=== PATIENT | male | born 1955 | race Caucasian/White ===

== ENCOUNTER 2018-04-08 17:17 | Observation (INO) | payer SELFPAY ==
[2018-04-08] MEDS ORDERED: NA CHLORIDE 0.9% 2,000 ML ONE (17:50)
[2018-04-08 17:59] LABS: Absolute Monocytes 0.7 K/uL (0.1-1.3); Absolute Neutrophil 7.1 K/uL (1.8-8.0); Basophils % 1.1 % (0-1.3); Eosinophils % 2.8 % (0-4.4); Hematocrit 46.9 % (39.6-49.0); Lymphocytes % 19.9 % (15.3-44.8); MCH 27.5 pg (27.0-35.0); MCV 80.9 fL (80-100); MPV 9.6 fL (7.6-11.3); Monocytes % 7.1 % (3.3-12.3)
[2018-04-08 18:03] LABS: Protime INR 0.94
--- NOTE | 2018-04-08 18:10 | RAD REPORT ---
EXAM DESCRIPTION: CT - Head Brain Wo Cont - 04/08/2018 6:03 pm CLINICAL HISTORY: Dizziness and headache COMPARISON: none TECHNIQUE: Computed axial tomography of the head was obtained. IV contrast was not requested. All CT scans are performed using dose optimization technique as appropriate and may include automated exposure control or mA/KV adjustment according to patient size. FINDINGS: An intracranial bleed is not seen . The ventricles are normal in caliber. No extra-axial fluid collection is noted. Mild low-density areas within periventricular, deep and sub cortical white matter likely represent ischemic changes secondary to small vessel disease. Fluid within the sinuses/ mastoids is not seen. IMPRESSION: No acute intracranial abnormality is seen. If patient's symptoms persist MRI of the bra in would be recommended.
--- NOTE | 2018-04-08 18:31 | RAD REPORT ---
EXAM DESCRIPTION: Myrna Single View04/08/2018 6:12 pm CLINICAL HISTORY: cough COMPARISON: None FINDINGS: The lungs appear clear of acute infiltrate. The heart is mildly to moderately enlarged. Postsurgical changes involve the chest. IMPRESSION: No acute abnormalities displayed
[2018-04-08 18:33] LABS: ALT/SGPT 14 U/L (12-78); AST/SGOT 13 U/L (15-37); Albumin 3.3 g/dL (3.4-5.0); Alkaline Phosphatase 121 U/L (45-117); BUN Blood Urea Nitrogen 16 mg/dL (7-18); Bicarbonate 29 mmol/L (21-32); Bilirubin Direct < 0.1 mg/dL (0-0.2); Bilirubin Total 0.3 mg/dL (0.2-1.0); CKMB Creatine Kinase MB 2.4 ng/mL (0.3-3.6); Creatine Phosphokinase 63 U/L (39-308); Glucose Level 362 mg/dL (74-106); Lipase 355 U/L (73-393); Magnesium 2.3 mg/dL (1.8-2.4); NT PRO-BNP 390 pg/mL (<125); Potassium 3.6 mmol/L (3.5-5.1); Protein, Total 6.6 g/dL (6.4-8.2); Sodium Level 140 mmol/L (136-145)
--- NOTE | 2018-04-08 19:08 | ER ---
Nurse's Notes [facility] Name: Romie Mallory Age: 62 yrs Sex: Male : 1955 Arrival Date: 04/08/2018 Time: 17:19 Bed 4 Private MD: Diagnosis: Dizziness and giddiness;Type 1 diabetes mellitus;Weakness;Vomiting Presentation: 04/08 17:23 Presenting complaint: EMS states: EMS states patient was a convenience store eating ae1 snacks with friends when he suddenly became dizzy and had to lie down. Patient states he consumed 3 large [employer] Peanut butter cups and a large Dr. Pepper. Patient states he knows he is a diabetic but has not taken insulin or other prescribed medications for "over a year." Patient vomited upon arrival. Transition of care: patient was not received from another setting of care. Onset of symptoms was April 08, 2018 at 17:00. Risk Assessment: Do you want to hurt yourself or someone else? Patient reports no desire to harm self or others. Initial Sepsis Screen: Does the patient meet any 2 criteria? No. Patient's initial sepsis screen is negative. Does the patient have a suspected source of infection? No. Patient's initial sepsis screen is negative. Care prior to arrival: Medication(s) given: Normal saline infusion, 300 mls has infused out of a liter bolus. zofran 4 mg, IV initiated. 20 GA, in the right forearm. 17:23 Method Of Arrival: EMS: [facility] ae1 17:23 Acuity: MANDI 2 ae1 17:27 Care prior to arrival: Glucose check: 408. ae1 Triage Assessment: 17:31 GI: Reports nausea, vomiting. ae1 17:33 General: Appears uncomfortable, slender, unkempt, Behavior is calm, cooperative. Pain: ae1 Denies pain. EENT: Patient states his vision has deteriorated over the last year. . Neuro: Level of Consciousness is awake, alert, obeys commands, Oriented to person, place, time, situation. Neuro: Reports dizziness. Cardiovascular: Heart tones S1 S2 present Patient's skin is warm and dry. Rhythm is regular. Respiratory: Airway is patent Respiratory effort is even, unlabored, shallow, Respiratory pattern is regular, symmetrical, Breath sounds are clear bilaterally. Breath sounds are diminished bilaterally. in left posterior lower lobe and right posterior lower lobe. GI: Reports. : No signs and/or symptoms were reported regarding the genitourinary system. Derm: Skin is normal. Musculoskeletal: No signs and/or symptoms reported regarding the musculoskeletal system. Historical: - Allergies: 17:29 No Known Allergies; ae1 - Home Meds: 17:29 None [Active]; ae1 - PMHx: 17:29 Diabetes - IDDM; Hypertension; Hyperlipidemia; Headaches; ae1 - PSHx: 17:29 cardiac stents; triple bypass.; ae1 - Immunization history:: Adult Immunizations not up to date. - Social history:: Smoking status: Patient uses tobacco products, smokes one pack cigarettes per day. - Ebola Screening: : Patient denies travel to an Ebola-affected area in the 21 days before illness onset No symptoms or risks identified at this time. - Family history:: not pertinent. Screenin:30 Abuse screen: Denies threats or abuse. Nutritional screening: No deficits noted. ae1 Tuberculosis screening: No symptoms or risk factors identified. Fall Risk None identified. Assessment: 17:30 General: Appears comfortable, Behavior is calm, cooperative. mg2 19:17 Reassessment: see full triage assessment. ae1 20:15 Reassessment: Patient appears in no apparent distress at this time. No changes from jd3 previously documented assessment. Patient and/or family updated on plan of care and expected duration. Pain level reassessed. Patient is alert, oriented x 3, equal unlabored respirations, skin warm/dry/pink. 21:26 Reassessment: Patient appears in no apparent distress at this time. No changes from jd3 previously documented assessment. Patient and/or family updated on plan of care and expected duration. Pain level reassessed. Patient is alert, oriented x 3, equal unlabored respirations, skin warm/dry/pink. 21:46 Reassessment: report called to [facility] for bed 225. bb 22:06 Reassessment: pt vomiting on moving to wheelchair Dr Burgos notified pt medicated see joce DEC. Vital Signs: 17:29 BP 183 / 94; Pulse 68; Resp 19; Temp 97.8(O); Pulse Ox 92% on R/A; Weight 74.84 kg (R); ae1 Pain 0/10; 21:26 BP 195 / 95; Pulse 72; Resp 17 S; Pulse Ox 95% on R/A; jd3 NIH Stroke Scale Scores: 19:24 NIHSS Score: 0 [facility] ED Course: 17:19 Patient arrived in ED. hj 17:23 Adrian Salinas, RN is Primary Nurse. ae1 17:27 Triage completed. ae1 17:29 Arm band placed on. EKG completed in triage. Results shown to MD. mg2 17:30 Bed in low position. Call light in reach. Side rails up X2. satellite project site monitor on. Pulse ae1 ox on. NIBP on. Warm blanket given. 17:30 Maintain EMS IV. Dressing intact. Good blood return noted. Site clean \\T\\ dry. Gauge \\T\\ mg 2 site: 20 in the right forearm. 17:36 Myles Burgos MD is Attending Physician. tera 17:45 EKG done, by ED staff, reviewed by Myles Burgos MD. jb1 18:03 CT completed. Patient moved to CT via stretcher. Patient moved back from CT. cw1 18:04 CT Head Brain wo Cont In Process Unspecified. EDMS 18:09 XRAY Chest (1 view) In Process Unspecified. EDMS 19:26 Delroy Suazo MD is Hospitalizing Provider. tera 21:28 No provider procedures requiring assistance completed. Patient admitted, IV remains in jd3 place. Administered Medications: 18:21 Drug: NS 0.9% 1000 ml Route: IV; Rate: 1 bolus; Site: right forearm; mg2 21:30 Follow up: Response: No adverse reaction; IV Status: Completed infusion; IV Intake: jd3 1000ml 18:41 Drug: NS 0.9% 1000 ml Route: IV; Rate: 1 bolus; Site: right forearm; mg2 21:30 Follow up: Response: No adverse reaction; IV Status: Completed infusion; IV Intake: jd3 1000ml 19:22 Not Given (Duplicate Order): Insulin Regular Human 10 units IVP once tera 19:22 Not Given (Duplicate Order): metFORMIN 1000 mg PO once; with meal or snack tera 19:25 Drug: Zofran 4 mg Route: IVP; Site: right forearm; jd3 21:30 Follow up: Response: No adverse reaction jd3 22:05 Drug: Zofran 4 mg Route: IVP; Site: right forearm; bb 22:05 Follow up: Response: Other; medication administered on transfer to room 225 bb Point of Care Testing: Blood Glucose: 17:29 Blood Glucose: 306 mg/dL; ae1 Ranges: Intake: 21:30 IV: 1000ml; Total: 1000ml. jd3 21:30 IV: 1000ml; Total: 2000ml. jd3 Outcome: 19:07 Discharge ordered by . tera 19:27 Decision to Hospitalize by Provider. tera 21:33 Admitted to Tele accompanied by tech, via wheelchair, room 225, with chart, Report bb called to receiving RN 21:33 Condition: stable 21:33 Instructed on the need for admit. 22:07 Patient left the ED. joce NIH Stroke Scale - NIH Stroke Score Date: 04/08/2018 Time: 19:24 Total Score = 0 1a. Level of Consciousness (LOC) - 0(Alert) 1b. Level of Consciousness (LOC) (Year \\T\\ Age) - 0(Both) 1c. LOC Commands (Open \\T\\ Closes Eyes/Software Architect) - 0(Both) 2. Best Gaze (Lateral Gaze Paresis) - 0(Normal) 3. Visual Field Loss - 0(No visual loss) 4. Facial Palsy - 0(Normal) 5a. Left Arm: Motor (10-second hold) - 0(No drift) 5b. Right Arm: Motor (10-second hold) - 0(No drift) 6a. Left Leg: Motor (5-second hold - always test supine) - 0(No drift) 6b. Right Leg: Motor (5-second hold - always test supine) - 0(No drift) 7. Limb Ataxia (finger/nose \\T\\ heel/crowley - test with eyes open) - 0(Absent) 8. Sensory Loss (pinprick arms/legs/face) - 0(Normal) 9. Best Language: Aphasia (description/naming/reading) - 0(No aphasia) 10. Dysarthria (speech clarity - read or repeat words) - 0(Normal) 11. Extinction and Inattention (visual/tactile/auditory/spatial/personal) - 0(No abnormality) Initials: [facility] Signatures: Dispatcher [employer] Terrance Bhtaia jb1 Myles Burgos MD MD cha Ballard, Brenda, RN RN Yuridia Blake cw1 Paul Ward RN RN hj Elliott, Andrea, RN RN ae1 Eddie Snell RN RN jd3 Jonatan Salinas RN RN mg2 Corrections: (The following items were deleted from the chart) 21: 20:15 Reassessment: Patient appears in no apparent distress at this time. No jd3 changes from previously documented assessment. Patient and/or family updated on plan of care and expected duration. Pain level reassessed. Patient is alert, oriented x 3, equal unlabored respirations, skin warm/dry/pink. jd3 21: 21:26 BP 202 / 104; Pulse 72bpm; Resp 17bpm; Spontaneous; Pulse Ox 95% RA; jd3 jd3
--- NOTE | 2018-04-08 19:08 | EDPHYS ---
Physician Documentation [facility] Name: Romie Mallory Age: 62 yrs Sex: Male : 1955 Arrival Date: 04/08/2018 Time: 17:19 Bed 4 Private MD: ED Physician Myles Burgos HPI: 04/08 17:44 This 62 yrs old Male presents to ER via EMS with complaints of Dizziness, tera Nausea/Vomiting. 17:44 The patient presents with dizziness, generalized weakness. Onset: The symptoms/episode tera began/occurred just prior to arrival, today. Context: occurred at a store. Modifying factors: The symptoms are alleviated by nothing, the symptoms are aggravated by nothing. Associated signs and symptoms: The patient has no apparent associated signs or symptoms. Severity of symptoms: At their worst the symptoms were moderate in the emergency department the symptoms are unchanged. Patient's baseline: Neuro: alert and fully oriented. The patient has not experienced similar symptoms in the past. Historical: - Allergies: 17:29 No Known Allergies; ae1 - Home Meds: 17:29 None [Active]; ae1 - PMHx: 17:29 Diabetes - IDDM; Hypertension; Hyperlipidemia; Headaches; ae1 - PSHx: 17:29 cardiac stents; triple bypass.; ae1 - Immunization history:: Adult Immunizations not up to date. - Social history:: Smoking status: Patient uses tobacco products, smokes one pack cigarettes per day. - Ebola Screening: : Patient denies travel to an Ebola-affected area in the 21 days before illness onset No symptoms or risks identified at this time. - Family history:: not pertinent. ROS: 17:44 Constitutional: Negative for fever, chills, and weight loss, Eyes: Negative for injury, tera pain, redness, and discharge, ENT: Negative for injury, pain, and discharge, Neck: Negative for injury, pain, and swelling, Cardiovascular: Negative for chest pain, palpitations, and edema, Respiratory: Negative for shortness of breath, cough, wheezing, and pleuritic chest pain, Abdomen/GI: Negative for abdominal pain, nausea, vomiting, diarrhea, and constipation, Back: Negative for injury and pain, : Negative for injury, bleeding, discharge, and swelling, MS/Extremity: Negative for injury and deformity, Skin: Negative for injury, rash, and discoloration, Psych: Negative for depression, anxiety, suicide ideation, homicidal ideation, and hallucinations, Allergy/Immunology: Negative for hives, rash, and allergies, Endocrine: Negative for neck swelling, polydipsia, polyuria, polyphagia, and marked weight changes, Hematologic/Lymphatic: Negative for swollen nodes, abnormal bleeding, and unusual bruising. 17:44 Neuro: Positive for dizziness, weakness. Exam: 17:44 Constitutional: This is a well developed, well nourished patient who is awake, alert, tera and in no acute distress. Head/Face: Normocephalic, atraumatic. Eyes: Pupils equal round and reactive to light, extra-ocular motions intact. Lids and lashes normal. Conjunctiva and sclera are non-icteric and not injected. Cornea within normal limits. Periorbital areas with no swelling, redness, or edema. ENT: Nares patent. No nasal discharge, no septal abnormalities noted. Tympanic membranes are normal and external auditory canals are clear. Oropharynx with no redness, swelling, or masses, exudates, or evidence of obstruction, uvula midline. Mucous membranes moist. Neck: Trachea midline, no thyromegaly or masses palpated, and no cervical lymphadenopathy. Supple, full range of motion without nuchal rigidity, or vertebral point tenderness. No Meningismus. Chest/axilla: Normal chest wall appearance and motion. Nontender with no deformity. No lesions are appreciated. Cardiovascular: Regular rate and rhythm with a normal S1 and S2. No gallops, murmurs, or rubs. Normal PMI, no JVD. No pulse deficits. Abdomen/GI: Soft, non-tender, with normal bowel sounds. No distension or tympany. No guarding or rebound. No evidence of tenderness throughout. Back: No spinal tenderness. No costovertebral tenderness. Full range of motion. Male : Normal genitalia with no discharge or lesions. Skin: Warm, dry with normal turgor. Normal color with no rashes, no lesions, and no evidence of cellulitis. 17:44 Respiratory: the patient does not display signs of respiratory distress, Respirations: normal, Breath sounds: are clear throughout, Respiratory rate: 18 Vital Signs: 17:29 BP 183 / 94; Pulse 68; Resp 19; Temp 97.8(O); Pulse Ox 92% on R/A; Weight 74.84 kg (R); ae1 Pain 0/10; 21:26 BP 195 / 95; Pulse 72; Resp 17 S; Pulse Ox 95% on R/A; jd3 NIH Stroke Scale Scores: 19:24 NIHSS Score: 0 tera MDM: 17:37 Patient medically screened. [facility] 17:44 Data reviewed: vital signs, nurses notes, lab test result(s), EKG, radiologic studies, [facility] CT scan, plain films. 04/08 17:43 Order name: Basic Metabolic Panel; Complete Time: 19:03 [facility] 04/08 17:43 Order name: CBC with Diff; Complete Time: 18:23 [facility] 04/08 17:43 Order name: Ckmb; Complete Time: 19:03 [facility] 04/08 17:43 Order name: CPK; Complete Time: 19:03 [facility] 04/08 17:43 Order name: LFT's; Complete Time: 19:03 [facility] 04/08 17:43 Order name: Magnesium; Complete Time: 19:03 [facility] 04/08 17:43 Order name: NT PRO-BNP; Complete Time: 19:03 [facility] 04/08 17:43 Order name: PT-INR; Complete Time: 18:23 [facility] 04/08 17:43 Order name: Ptt, Activated; Complete Time: 18:23 [facility] 04/08 17:43 Order name: Troponin (emerg Dept Use Only); Complete Time: 18:23 [facility] 04/08 17:43 Order name: Lipase; Complete Time: 19:03 [facility] 04/08 17:43 Order name: Urine Culture; Complete Time: 21:41 [facility] 04/08 19:19 Order name: Glucose, Ancillary Testing; Complete Time: 19:24 [facility] 04/08 20:09 Order name: Urine Dipstick--Ancillary (enter results) rg2 04/08 17:43 Order name: XRAY Chest (1 view); Complete Time: 19:03 [facility] 04/08 17:43 Order name: EKG; Complete Time: 17:44 [facility] 04/08 17:43 Order name: Cardiac monitoring; Complete Time: 17:46 [facility] 04/08 17:43 Order name: EKG - Nurse/Tech; Complete Time: 18:00 [facility] 04/08 17:43 Order name: IV Saline Lock; Complete Time: 17:46 [facility] 04/08 17:43 Order name: Labs collected and sent; Complete Time: 18:22 [facility] 04/08 17:43 Order name: O2 Per Protocol; Complete Time: 17:46 [facility] 04/08 17:43 Order name: O2 Sat Monitoring; Complete Time: 17:46 [facility] 04/08 17:43 Order name: CT Head Brain wo Cont; Complete Time: 18:23 [facility] 04/08 20:21 Order name: Urine Dipstick-Ancillary; Complete Time: 21:41 EDMS 04/08 17:43 Order name: Urine Dipstick-Ancillary (obtain specimen); Complete Time: 21:30 [facility] Administered Medications: 18:21 Drug: NS 0.9% 1000 ml Route: IV; Rate: 1 bolus; Site: right forearm; mg2 21:30 Follow up: Response: No adverse reaction; IV Status: Completed infusion; IV Intake: jd3 1000ml 18:41 Drug: NS 0.9% 1000 ml Route: IV; Rate: 1 bolus; Site: right forearm; mg2 21:30 Follow up: Response: No adverse reaction; IV Status: Completed infusion; IV Intake: jd3 1000ml 19:22 Not Given (Duplicate Order): Insulin Regular Human 10 units IVP once [facility] 19:22 Not Given (Duplicate Order): metFORMIN 1000 mg PO once; with meal or snack [facility] 19:25 Drug: Zofran 4 mg Route: IVP; Site: right forearm; jd3 21:30 Follow up: Response: No adverse reaction jd3 22:05 Drug: Zofran 4 mg Route: IVP; Site: right forearm; bb 22:05 Follow up: Response: Other; medication administered on transfer to room 225 bb Point of Care Testing: Blood Glucose: 17:29 Blood Glucose: 306 mg/dL; ae1 Ranges: Critical Glucose Levels:Adult <50 mg/dl or >400 mg/dl <40 mg/dl or >180 mg/dl Disposition: 04/08/18 19:27 Hospitalization ordered by Delroy Suazo for Observation. Preliminary diagnosis are Dizziness and giddiness, Type 1 diabetes mellitus, Weakness, Vomiting. - Bed requested for Telemetry/MedSurg (observation). - Status is Observation. bb - Condition is Fair. - Problem is new. - Symptoms have improved. UTI on Admission? No NIH Stroke Scale - NIH Stroke Score Date: 04/08/2018 Time: 19:24 Total Score = 0 1a. Level of Consciousness (LOC) - 0(Alert) 1b. Level of Consciousness (LOC) (Year \T\ Age) - 0(Both) 1c. LOC Commands (Open \T\ Closes Eyes/Customer Service Associate) - 0(Both) 2. Best Gaze (Lateral Gaze Paresis) - 0(Normal) 3. Visual Field Loss - 0(No visual loss) 4. Facial Palsy - 0(Normal) 5a. Left Arm: Motor (10-second hold) - 0(No drift) 5b. Right Arm: Motor (10-second hold) - 0(No drift) 6a. Left Leg: Motor (5-second hold - always test supine) - 0(No drift) 6b. Right Leg: Motor (5-second hold - always test supine) - 0(No drift) 7. Limb Ataxia (finger/nose \T\ heel/crowley - test with eyes open) - 0(Absent) 8. Sensory Loss (pinprick arms/legs/face) - 0(Normal) 9. Best Language: Aphasia (description/naming/reading) - 0(No aphasia) 10. Dysarthria (speech clarity - read or repeat words) - 0(Normal) 11. Extinction and Inattention (visual/tactile/auditory/spatial/personal) - 0(No abnormality) Initials: [facility] Signatures: Dispatcher [employer] EDMS Sophie Hoffman RN RN mw Anderson, Corey, MD MD cha Ballard, Brenda RN RN bb Adrian Salinas RN RN ae1 Eddie Snell RN RN jd3 Jonatan Salinas RN RN mg2 Corrections: (The following items were deleted from the chart) 19:22 19:07 04/08/2018 19:07 Discharged to Home. Impression: Dizziness and giddiness; tera Weakness; Type 1 diabetes mellitus. Condition is Stable. Forms are Medication Reconciliation Form, Thank You Letter, Antibiotic Education, Prescription Opioid Use. Follow up: Private Physician; When: 2 - 3 days; Reason: Recheck today's complaints, Continuance of care, Re-evaluation by your physician. Problem is new. Symptoms have improved. [facility] 19:30 19:27 Hospitalization Ordered by Delroy Suazo MD for Observation. Preliminary diagnosis is Dizziness and giddiness; Type 1 diabetes mellitus; Weakness; Vomiting. Bed requested for Telemetry/MedSurg (observation). Status is Observation. Condition is Fair. Problem is new. Symptoms have improved. UTI on Admission? No. [facility] 22:07 19:30 04/08/2018 19:27 Hospitalization Ordered by Delroy Suazo MD for bb Observation. Preliminary diagnosis is Dizziness and giddiness; Type 1 diabetes mellitus; Weakness; Vomiting. Bed requested for Telemetry/MedSurg (observation). Status is Observation. Condition is Fair. Problem is new. Symptoms have improved. UTI on Admission? No.
[2018-04-08] MEDS ORDERED: ONDANSETRON 4 MG/2 ML VIAL ONE ×2 (19:26→22:03)
[2018-04-08 20:21] LABS: Urine Blood TRACE (NEG); Urine Glucose 2+ (NEG); Urine Protein 1+ (NEG)
[2018-04-08] MEDS ORDERED: MORPHINE 2 MG/ML SYR IV PRN (20:33)
[2018-04-08] MEDS ORDERED: ACETAMINOPHEN 500 MG TAB PO PRN (20:33)
[2018-04-08] MEDS ORDERED: HYDRALAZINE HCL 20 MG/ML VIAL IV PRN (22:39)
[2018-04-08 23:05] VITALS: BMI 24.3
[2018-04-08] MEDS: NA CHLORIDE 0.9% 1,000 ML IV SCH (23:10)
[2018-04-08] MEDS: NICOTINE 21 MG/PAT TD SCH (23:11)
[2018-04-08] MEDS ORDERED: cloNIDine HCl 0.1 MG TAB PO ONE (23:34)
[2018-04-09] MEDS: ONDANSETRON 4 MG/2 ML VIAL IV PRN ×2 (03:16→17:10)
[2018-04-09 05:03] LABS: Absolute Lymphocytes (CBC) 1.6 K/uL (0.7-4.9); Absolute Monocytes 0.5 K/uL (0.1-1.3); Absolute Neutrophil 13.5 K/uL (1.8-8.0); Basophils % 0.5 % (0-1.3); Eosinophils % 0.1 % (0-4.4); Lymphocytes % 10.2 % (15.3-44.8); MCH 27.2 pg (27.0-35.0); MCV 82.1 fL (80-100); MPV 9.4 fL (7.6-11.3); RBC Red Blood Cell Count 5.73 M/uL (4.33-5.43)
[2018-04-09 05:17] LABS: ALT/SGPT 14 U/L (12-78); AST/SGOT 12 U/L (15-37); Albumin 3.4 g/dL (3.4-5.0); Alkaline Phosphatase 109 U/L (45-117); BUN Blood Urea Nitrogen 15 mg/dL (7-18); Bicarbonate 28 mmol/L (21-32); Bilirubin Total 0.5 mg/dL (0.2-1.0); Glucose Level 308 mg/dL (74-106); Potassium 3.7 mmol/L (3.5-5.1); Protein, Total 6.7 g/dL (6.4-8.2); Sodium Level 141 mmol/L (136-145)
[2018-04-09 05:28] LABS: Blood Morphology Comment NOT SEEN (NOT SEEN); Platelet Estimate ADEQ
[2018-04-09] MEDS ORDERED: GLUCAGON 1 MG/VIAL IM PRN (06:43)
[2018-04-09] MEDS ORDERED: D50W 25 GM/50 ML SYRINGE IV PRN (06:43)
--- NOTE | 2018-04-09 08:23 | P.HP ---
Certification for Inpatient Patient admitted to: Observation With expected LOS: <2 Midnights Patient will require the following post-hospital care: None Practitioner: I am a practitioner with admitting privileges, knowledge of patient current condition, hospital course, and medical plan of care. Services: Services provided to patient in accordance with Admission requirements found in Title 42 Section 412.3 of the Code of Federal Regulations Patient History Date of Service: 04/08/18 Reason for admission: Intractable nausea and vomiting; poorly-controlled diabetes History of Present Illness: Patient is a 62-year-old gentleman who came into the hospital with persistent nausea and vomiting. Patient has been having multiple episodes for the last 2 days. He has also had generalized weakness. He came into the emergency room for further evaluation. Patient denies any abdominal pain. He just states he feels weak all over. She has not been compliant with his diabetic medications as he states he cannot afford them. In the emergency room patient was given IV fluids and anti emetics. His clinical symptoms have slightly improved. Will keep him NPO in possibly started diet in the morning. At this time, will continue with current plan of care. Will also resume his diabetic medications once we get the list. For the time being will go ahead and use a sliding scale. Allergies No Known Allergies Allergy (Unverified 04/08/18 19:37) Home Medications: NK [No Home Meds] 04/09/18 - Past Medical/Surgical History Has patient received pneumonia vaccine in the past: Yes Diabetic: Yes -: DM -: HTN -: Hyperlipidemia -: Triple Bypass -: Cardiac Stents placed -: Tonsillectomy - Family History Father Medical History: Heart disease Notes: Alzheimer's Disease Mother Medical History: Cancer Notes: Cancer of Pancreas Sister Medical History: Heart disease - Social History Smoking Status: Current every day smoker Alcohol use: Yes CD- Drugs: No Caffeine use: Yes Place of Residence: Home Review of Systems 10-point ROS is otherwise unremarkable Physical Examination - Vital Signs Temperature: 99.0 F Blood Pressure: 154/71 Pulse: 69 Respirations: 18 Pulse Ox (%): 93 - Physical Exam General: Alert, In no apparent distress, Oriented x3 HEENT: Atraumatic, PERRLA, Mucous membr. moist/pink, EOMI, Sclerae nonicteric Neck: Supple, 2+ carotid pulse no bruit, No LAD, Without JVD or thyroid abnormality Respiratory: Clear to auscultation bilaterally, Normal air movement Cardiovascular: Regular rate/rhythm, Normal S1 S2, No murmurs Gastrointestinal: Normal bowel sounds, Soft and benign, Non-distended, No tenderness Musculoskeletal: No clubbing, No swelling, No tenderness Integumentary: No rashes Neurological: Normal gait, Normal speech, Normal strength at 5/5 x4 extr, Normal tone, Sensation intact, Cranial nerves 3-12 intact, Normal affect Lymphatics: No axilla or inguinal lymphadenopathy - Studies Laboratory Data (last 24 hrs) 04/08/18 17:40: PT 11.1, INR 0.94, APTT 27.6 04/08/18 17:40: WBC 10.2, Hgb 15.9, Hct 46.9, Plt Count 231 04/08/18 17:40: Sodium 140, Potassium 3.6, BUN 16, Creatinine 0.90, Glucose 362 H, Magnesium 2.3, Total Bilirubin 0.3, AST 13 L, ALT 14, Alkaline Phosphatase 121 H, Lipase 355 Assessment & Plan - Problems (Diagnosis) (1) Intractable nausea and vomiting Current Visit: Yes Status: Acute (2) Generalized weakness Current Visit: Yes Status: Acute (3) Type 1 diabetes Current Visit: Yes Status: Acute - Plan Plan: 1. IV hydration 2. Anti emetics 3. Strict blood sugar control 4. Resume diabetic meds once we get the list 5. Monitor for fever, shakes, or chills 6. Possible viral gastroenteritis symptoms which should resolve over the next 24 -48 hr. No signs of diarrhea. 7. GI and DVT prophylaxis - Advance Directives Does patient have a Living Will: No Does patient have a Durable POA for Healthcare: No - Code Status/Comfort Care Code Status Assessed: Yes Code Status: Full Code Critical Care: No Time Spent Managing PTS Care (In Minutes): 50
--- NOTE | 2018-04-09 10:55 | EKG ---
Test Date: 2018-04-08 Test Time: 17:26:35 [employer]sembl[employer] Boat: [id number] MEASUREMENT RESULTS: Intervals: Rate: 67 FL: 236 QRSD: 102 QT: 440 QTc: 464 [place]: P: 27 FL: 236 QRS: 17 T: -16 INTERPRETIVE STATEMENTS: Sinus rhythm with 1st degree AV block Possible Anterior infarct, age undetermined Abnormal ECG No previous ECG available for comparison Electronically Signed On 04-09-18 10:54:44 CDT by Raymond Rowe
[2018-04-09] MEDS: INSULIN -REGULAR HUMAN 50 UNIT/0.5 ML ML SQ SCH ×2 (12:23→17:27)
[2018-04-09] MEDS: NA CHLORIDE 0.9% 1,000 ML IV SCH (12:23)
[2018-04-09] MEDS: LISINOPRIL 10 MG TAB PO SCH (12:26)
[2018-04-09 13:03] LABS: Absolute Lymphocytes (CBC) 1.7 K/uL (0.7-4.9); Absolute Monocytes 0.7 K/uL (0.1-1.3); Absolute Neutrophil 11.9 K/uL (1.8-8.0); Basophils % 0.7 % (0-1.3); Eosinophils % 0.1 % (0-4.4); Hematocrit 46.9 % (39.6-49.0); Lymphocytes % 11.9 % (15.3-44.8); MCH 27.1 pg (27.0-35.0); MCV 80.7 fL (80-100); MPV 9.9 fL (7.6-11.3); Monocytes % 4.8 % (3.3-12.3); RBC Red Blood Cell Count 5.81 M/uL (4.33-5.43)
[2018-04-09 13:13] LABS: Potassium 3.8 mmol/L (3.5-5.1)
--- NOTE | 2018-04-09 13:58 | P.PN ---
Subjective Date of Service: 04/09/18 Chief Complaint: Intractable nausea and vomiting; poorly-controlled diabetes Pt seen and examined at bedside doing well overall. No complains to offer overnight. Slight Nausea still noted. Review of Systems General: As per HPI Physical Examination - Vital Signs Temperature: 97.7 F Blood Pressure: 161/81 Pulse: 65 Respirations: 18 Pulse Ox (%): 95 - Physical Exam General: Alert, In no apparent distress HEENT: Atraumatic, PERRLA, EOMI Neck: Supple, JVD not distended Respiratory: Clear to auscultation bilaterally, Normal air movement Cardiovascular: Regular rate/rhythm, Normal S1 S2 Gastrointestinal: Normal bowel sounds, No tenderness Musculoskeletal: No tenderness Integumentary: No rashes Neurological: Normal speech, Normal tone, Normal affect Lymphatics: No axilla or inguinal lymphadenopathy - Studies Laboratory Data (last 24 hrs) 04/08/18 17:40: PT 11.1, INR 0.94, APTT 27.6 04/08/18 17:40: WBC 10.2, Hgb 15.9, Hct 46.9, Plt Count 231 04/08/18 17:40: Sodium 140, Potassium 3.6, BUN 16, Creatinine 0.90, Glucose 362 H, Magnesium 2.3, Total Bilirubin 0.3, AST 13 L, ALT 14, Alkaline Phosphatase 121 H, Lipase 355 Medications List Reviewed: Yes Assessment & Plan - Problems (Diagnosis) (1) Diabetes Current Visit: Yes Status: Acute Plan: Type 2 DM with noncompliance with medication due not being able to afford medication -Currenltly on Sliding scale. Will calculate Need on next 24hrs and start Basal insulin - to help with prescription assistance chaitanya Qualifiers: Diabetes mellitus type: type 2 Diabetes mellitus usp insulin use: without usp use Diabetes mellitus complication status: without complication Qualified Code(s): E11.9 - Type 2 diabetes mellitus without complications (2) Intractable nausea and vomiting Current Visit: Yes Status: Acute Plan: Most Likely gastroparesis. But Cannot r.o viral gastroenteritis with Recent Elevation in WBC -IV fluids and nausea meds -Will f.u in 24hrs for improvement Qualifiers: Vomiting type: cyclical vomiting Qualified Code(s): G43.A1 - Cyclical vomiting, intractable Discharge Plan: Home Plan to discharge in: 24 Hours - Code Status/Comfort Care Code Status Assessed: Yes Critical Care: No
[2018-04-09] MEDS ORDERED: cloNIDine HCl 0.1 MG TAB PO ONE (17:07)
[2018-04-10] MEDS: NA CHLORIDE 0.9% 1,000 ML IV SCH ×2 (00:30→13:00)
[2018-04-10] MEDS: INSULIN -REGULAR HUMAN 50 UNIT/0.5 ML ML SQ SCH ×3 (00:30→12:28)
[2018-04-10] MEDS: NICOTINE 21 MG/PAT TD SCH (08:17)
[2018-04-10] MEDS: LISINOPRIL 10 MG TAB PO SCH (08:17)
[2018-04-10 08:19] VITALS: BP 164/84
[2018-04-10 10:43] VITALS: TEMP 97.6
[2018-04-10 14:36] VITALS: O2SAT 93
--- NOTE | 2018-04-11 06:43 | DS ---
Date of Discharge: 04/10/2018 Admitting Diagnoses: 1.Intractable nausea and vomiting. 2.Generalized weakness. 3.Diabetes mellitus type 1 with hyperglycemia. Discharge Diagnoses: 1.Diabetes mellitus type 1 with hyperglycemia. 2.Intractable nausea and vomiting, resolved. 3.Dizziness, likely benign positional vertigo. 4.Noncompliance. Hospital Course: The patient is a 62-year-old male who is coming in with intractable nausea and vomi ting, poorly controlled diabetes, was started on IV fluids, antiemetics, and started on sliding scale insulin. The patient was monitored for any signs of further infectious etiology and did have some m ild elevation in his WBC count. Otherwise, his electrolytes were stable. His troponin levels were n egative. Did not have any signs of sepsis. Blood sugars were uncontrolled. The patient is not taki ng any medications at home. The patient did improve with IV fluids and antiemetics. He was able to tolerate his diet. Head CT scan was done due to dizziness, did not show any acute intracranial abnor mality, did show some small vessel disease. The patient was still complaining of some vertigo with p osition change along with some ringing in his ears, likely secondary to benign positional vertigo or possible Meniere disease. He was shown the Taylor maneuver and given education handout. He was able to ambulate without difficulty. He was seen by Physical Therapy. The patient was then discharged in a stable condition. Activity: As tolerated. Medications: As per medication reconciliation list. Followup: Follow up with primary care physician in 2-3 days. Return to ER for worsening condition. Diet: Diabetic. Physical Examination: General: Awake, alert, and oriented, no acute distress. CV: S1, S2. No murmurs. Respiratory: Moving air well bilaterally. No wheezing. Gastrointestinal: Abdomen is soft, nontender, and nondistended. Positive bowel sounds. Extremities: No clubbing, cyanosis, or edema. Neurologic: Nonfocal. SA/MODL Voice ID: [id number] Report ID: [id number]
== END 2018-04-10 13:56 | disposition home or self-care (01) ==
LOC: ER 17:17 → ERHOLD 19:29 → 2ND 21:17
PROVIDERS: ADMIT Hospitalist; ATTEND Hospitalist
DX: E10.65 Type 1 diabetes mellitus with hyperglycemia (principal); R11.2 Nausea with vomiting, unspecified; R42 Dizziness and giddiness; Z91.14 Patient's other noncompliance with medication regimen; Z95.5 Presence of coronary angioplasty implant and graft; Z95.1 Presence of aortocoronary bypass graft; F17.210 Nicotine dependence, cigarettes, uncomplicated
CPT/HCPCS: 36415; 70450; 71045; 80048; 80053; 80076; 81003; 82550; 82553; 82962; 83690; 83735; 83880; 84484; 85025; 85610; 85730; 87086; 87088; 93005; 96361; 96374; 99285; G0378; J2405; J7030